=== PATIENT | female | born 1995 | race Two or more races ===

== ENCOUNTER → 2019-06-07 | Outpatient (CLI) | payer OTHER | END | disposition home or self-care (01) | LOC: PRENATAL 13:00 | DX: O99.210 Obesity complicating pregnancy, unspecified trimester (principal); O36.80X0 Pregnancy with inconclusive fetal viability, not applicable or unspecified; Z3A.14 14 weeks gestation of pregnancy; O26.879 Cervical shortening, unspecified trimester; O10.019 Pre-existing essential hypertension complicating pregnancy, unspecified trimester; Z36.82 Encounter for antenatal screening for nuchal translucency ==

== ENCOUNTER → 2019-07-12 | Outpatient (CLI) | payer OTHER | END | disposition home or self-care (01) | LOC: PRENATAL 08:00 | DX: O35.3XX0 Maternal care for (suspected) damage to fetus from viral disease in mother, not applicable or unspecified (principal); O26.872 Cervical shortening, second trimester; O99.212 Obesity complicating pregnancy, second trimester ==

== ENCOUNTER 2019-10-06 12:12 | Inpatient (IN) | payer OTHER ==
[~2019-10-06] VITALS: Ht 165.1 cm; Wt 120.7 kg
[2019-10-06] MEDS ORDERED: ASPIR 8181 MG PO (13:06)
[2019-10-06] MEDS ORDERED: PRENATAL CAPLE1 EAC1 PO (13:06)
== END 2019-10-09 14:33 | disposition home or self-care (01) | DRG 807 ==
LOC: OBS/DEL 12:12 → LDR 12:30 → OB/GYN 10-07 08:28
PROVIDERS: ADMIT Obstetrics & Gynecology
PROC: 10E0XZZ Delivery of Products of Conception, External Approach (ICD-10-PCS; principal; 2019-10-07)
PROC: 3E033VJ Introduction of Other Hormone into Peripheral Vein, Percutaneous Approach (ICD-10-PCS; 2019-10-07)
PROC: 4A1HXFZ Monitoring of Products of Conception, Cardiac Rhythm, External Approach (ICD-10-PCS; 2019-10-07)
PROC: 10907ZC Drainage of Amniotic Fluid, Therapeutic from Products of Conception, Via Natural or Artificial Opening (ICD-10-PCS; 2019-10-07)
DX: O60.14X0 Preterm labor third trimester with preterm delivery third trimester, not applicable or unspecified (principal); Z37.0 Single live birth; O24.420 Gestational diabetes mellitus in childbirth, diet controlled; Z3A.31 31 weeks gestation of pregnancy

== ENCOUNTER 2024-10-20 05:39 | Day surgery (SDC) | payer OTHER ==
[~2024-10-20 05:39] MED LIST: ASPIR 8181 MG PO; PRENATAL CAPLE1 EAC1 PO
[2024-10-20] MEDS ORDERED: FentaNYL CITRATE/PF 50MCG/ML 2ML VIAL IJ ONE (07:45)
[2024-10-20] MEDS ORDERED: DIPHENHYDRAMINE HCL 50 MG/ML VIAL 1ML IV ONE (07:45)
[2024-10-20] MEDS ORDERED: MIDAZOLAM HCL/PF 5 MG/ML VIAL IV ONE (07:45)
== END 2024-10-20 09:15 | disposition home or self-care (01) ==
LOC: AMB-ENDOS 05:39
PROVIDERS: ATTEND Surgery
DX: R10.13 Epigastric pain (principal); K44.9 Diaphragmatic hernia without obstruction or gangrene